=== PATIENT | female | born 1960 | race Caucasian/White ===

== ENCOUNTER → 2019-01-06 | Outpatient (CLI) | payer MEDICAID ==
[2019-01-06 11:41] LABS: Basophils # (A) 0.1 k/uL (0-0.2); Basophils % (A) 1 %; Eosinophils # (A) 0.2 k/uL (0-0.7); Eosinophils % (A) 3 %; HCT 44.6 % (34.0-46.0); HGB 14.3 gm/dL (11.4-16.0); Lymphocytes # (A) 2.2 k/uL (1.0-4.8); Lymphocytes % (A) 38 %; MCH 30.4 pg (25.0-35.0); Mean Platelet Volume 7.1; Monocytes # (A) 0.4 k/uL (0-1.0); Monocytes % (A) 6 %; Neutrophils % (A) 51 %; Platelet Count 274 k/uL (150-450); RBC 4.69 m/uL (3.80-5.40); RDW 12.8 % (11.5-15.5); WBC 5.8 k/uL (3.8-10.6)
[2019-01-06 17:08] LABS: T4, Free (Free Thyroxine) 1.2 ng/dL (0.80-1.80)
[2019-01-06 17:16] LABS: Albumin 4.5 g/dL (3.80-4.90); Albumin/Globulin Ratio 1.96 (1.60-3.17); Anion Gap 5.2 mmol/L (4.00-12.00); Calcium 9.6 mg/dL (8.7-10.3); Carbon Dioxide 27.8 mmol/L (21.6-31.8); Globulin 2.3 g/dL (1.6-3.3); LDL Cholesterol,Calculated 162.6 mg/dL (0.0-131.0); Potassium 4.8 mmol/L (3.5-5.5); Total Bilirubin 0.4 mg/dL (0.3-1.2); Total Protein 6.8 g/dL (6.2-8.2); VLDL Calculation 41.4 mg/dL (5.00-40.00)
== END | disposition home or self-care (01) ==
LOC: LABWHC1 11:07
PROVIDERS: ATTEND Nurse Practitioner Family
DX: E03.9 Hypothyroidism, unspecified (principal); E55.9 Vitamin D deficiency, unspecified; Z13.220 Encounter for screening for lipoid disorders
CPT/HCPCS: 36415; 80053; 80061; 82306; 84439; 84443; 85025

== ENCOUNTER → 2019-08-03 | Outpatient (CLI) | payer MEDICAID ==
[2019-08-03 08:59] LABS: Basophils # (A) 0.1 k/uL (0-0.2); Basophils % (A) 1 %; Eosinophils # (A) 0.1 k/uL (0-0.7); Eosinophils % (A) 2 %; HCT 41.3 % (34.0-46.0); HGB 13.4 gm/dL (11.4-16.0); Lymphocytes # (A) 2.1 k/uL (1.0-4.8); Lymphocytes % (A) 40 %; MCH 29.9 pg (25.0-35.0); MCHC 32.4 g/dL (31.0-37.0); MCV 92.3 fL (80.0-100.0); Mean Platelet Volume 7.7; Monocytes # (A) 0.3 k/uL (0-1.0); Monocytes % (A) 6 %; Neutrophils # (A) 2.6 k/uL (1.3-7.7); Neutrophils % (A) 50 %; Platelet Count 241 k/uL (150-450); RBC 4.47 m/uL (3.80-5.40); RDW 12.6 % (11.5-15.5); WBC 5.2 k/uL (3.8-10.6)
[2019-08-03 12:23] LABS: Erythrocyte Sedimentation Rate 12 mm/hr (0-20)
[2019-08-03 17:35] LABS: Iron Saturation 20.42 (12.00-45.00); Iron(FE) 78 ug/dL (50-170); Total Iron Binding Capacity 382 ug/dL (228-460)
[2019-08-03 17:56] LABS: ALT 25 U/L (8-44); AST 22 U/L (13-35); African American GFR (CKD) 94.9 (60.0-200.0); Alkaline Phosphatase 28 U/L (41-126); BUN/Creat Ratio 28.75 Ratio (12.00-20.00); C Reactive Protein <0.4 mg/dL (0.0-0.8); Calcium 9.6 mg/dL (8.7-10.3); Carbon Dioxide 27.9 mmol/L (21.6-31.8); Chloride 106 mmol/L (96-109); Chol/HDL Ratio 4.43; Cholesterol 208 mg/dL (0-200); Creatine Kinase 44 U/L (26-186); Glucose 100 mg/dL (70-110); LDL Cholesterol,Calculated 122.8 mg/dL (0.0-131.0); Magnesium 1.8 mg/dL (1.5-2.4); Non-African American GFR(CKD) 81.8 (60.0-200.0); Potassium 4.9 mmol/L (3.5-5.5); Sodium 140 mmol/L (135-145); Total Bilirubin 0.4 mg/dL (0.3-1.2); Total Protein 6.4 g/dL (6.2-8.2); Uric Acid 4.3 mg/dL (2.9-7.7)
[2019-08-04 12:25] LABS: Aldolase 3.6 U/L (1.2-7.6)
== END | disposition home or self-care (01) ==
LOC: LABWHC1 08:29
PROVIDERS: ATTEND Family Medicine
DX: D86.9 Sarcoidosis, unspecified (principal); E03.9 Hypothyroidism, unspecified; M79.10 Myalgia, unspecified site; N95.9 Unspecified menopausal and perimenopausal disorder
CPT/HCPCS: 36415; 80053; 80061; 82085; 82164; 82550; 82607; 83540; 83550; 83735; 84439; 84443; 84550; 85025; 85652; 86038; 86140

== ENCOUNTER → 2019-11-03 | Outpatient (CLI) | payer MEDICAID ==
[2019-11-03 11:54] LABS: Basophils % (A) 1 %; Eosinophils # (A) 0.1 k/uL (0-0.7); Eosinophils % (A) 1 %; HCT 42.8 % (34.0-46.0); HGB 13.6 gm/dL (11.4-16.0); Lymphocytes # (A) 2.1 k/uL (1.0-4.8); Lymphocytes % (A) 37 %; MCHC 31.7 g/dL (31.0-37.0); MCV 91.6 fL (80.0-100.0); Mean Platelet Volume 8.4; Monocytes # (A) 0.3 k/uL (0-1.0); Monocytes % (A) 5 %; Neutrophils # (A) 3.1 k/uL (1.3-7.7); Neutrophils % (A) 54 %; Platelet Count 234 k/uL (150-450); RBC 4.68 m/uL (3.80-5.40); RDW 12.3 % (11.5-15.5); WBC 5.7 k/uL (3.8-10.6)
[2019-11-03 18:17] LABS: T4, Free (Free Thyroxine) 0.9 ng/dL (0.80-1.80)
[2019-11-03 18:22] LABS: African American GFR (CKD) 117.3 (60.0-200.0); Albumin 4.6 g/dL (3.80-4.90); Albumin/Globulin Ratio 2.3 (1.60-3.17); Anion Gap 8.5 mmol/L (4.00-12.00); Carbon Dioxide 28.5 mmol/L (21.6-31.8); Non-African American GFR(CKD) 101.2 (60.0-200.0); Potassium 4.4 mmol/L (3.5-5.5); Total Bilirubin 0.4 mg/dL (0.2-1.2); Total Protein 6.6 g/dL (6.2-8.2)
== END | disposition home or self-care (01) ==
LOC: LABWHC1 11:03
PROVIDERS: ATTEND Family Medicine
DX: E56.9 Vitamin deficiency, unspecified (principal); R07.9 Chest pain, unspecified; R06.02 Shortness of breath; R20.2 Paresthesia of skin
CPT/HCPCS: 36415; 80053; 82175; 82570; 82785; 83655; 83825; 83880; 84207; 84439; 84443; 84484; 85025; 85379

== ENCOUNTER → 2019-11-28 | Outpatient (CLI) | payer MEDICAID ==
--- NOTE | 2019-11-28 11:15 | CT ---
EXAMINATION TYPE: CT chest w con DATE OF EXAM: 11/28/2019 COMPARISON: Shortness of breath, sarcoidosis, asthma HISTORY: Sarcoidosis CT DLP: 314.5 mGycm Automated exposure control for dose reduction was used. CONTRAST: CT scan of the chest is performed with IV Contrast, patient injected with 100 mL of Isovue 300. FINDINGS: LUNGS: The lungs are grossly clear, there is no concerning parenchymal mass or nodule identified. T here is no pleural effusion or pneumothorax seen. The tracheobronchial tree is patent. Density in th e left apex posteriorly noted measuring 7 mm extending to the pleura likely postinflammatory. MEDIASTINUM: There are no greater than 1 cm hilar or mediastinal lymph nodes. No pericardial effusi on is seen. OTHER: Hypertrophic and degenerative change of the vertebral column. Subsegmental changes in the ant erior segment left lower lobe most typical atelectasis IMPRESSION: 1. No acute intrathoracic process. No pathologic adenopathy. Areas of subsegmental consolidation felt to BE most likely postinflammatory or related to atelectasis.
--- NOTE | 2019-11-28 12:58 | ECHOF ---
Referral Reason:R06.02 SOB MEASUREMENTS -------- HEIGHT: 157.5 cm WEIGHT: 72.6 kg BP: RVIDd: 2.4 cm (< 3.3) IVSd: 0.9 cm (0.6 - 1.1) LVIDd: 3.6 cm (3.9 - 5.3) LVPWd: 1.2 cm (0.6 - 1.1) IVSs: 1.3 cm LVIDs: 3.0 cm LVPWs: 1.2 cm LA Diam: 3.0 cm (2.7 - 3.8) LAESV Index (A-L): 15.06 ml/m MV EXCURSION: 16.703 mm (> 18.000) MV EF SLOPE: 136 mm/s (70 - 150) EPSS: 0.2 cm MV E Damian: 0.75 m/s MV DecT: 181 ms MV A Damian: 0.69 m/s MV E/A Ratio: 1.09 RAP: 5.00 mmHg RVSP: 26.90 mmHg FINDINGS -------- Sinus rhythm. This was a technically good study. LV size, wall thickness and systolic function are normal, with an EF greater than 55%. The left hanny tricular size is normal. Overall left ventricular systolic function is normal with, an EF between 5 5 - 60 %. The diastolic filling pattern is normal for the age of the patient 9.37. The right ventricle is normal in size. The left atrial size is normal. Normal LA size by volume 22+/-6 ml/m2. The right atrial size is normal. The aortic valve is trileaflet, and appears structurally normal. No aortic stenosis or regurgitation. Mild mitral regurgitation is present. Mild tricuspid regurgitation present. Right ventricular systolic pressure is normal at < 35 mmHg. There is no evidence of pulmonary hypertension. There is no pulmonic regurgitation present. The aortic root size is normal. There is no pericardial effusion. CONCLUSIONS -------- 1. Sinus rhythm. 2. This was a technically good study. 3. LV size, wall thickness and systolic function are normal, with an EF greater than 55%. 4. The left ventricular size is normal. 5. Overall left ventricular systolic function is normal with, an EF between 55 - 60 %. 6. The diastolic filling pattern is normal for the age of the patient 9.37 7. The right ventricle is normal in size. 8. The left atrial size is normal. 9. Normal LA size by volume 22+/-6 ml/m2. 10. The right atrial size is normal. 11. The aortic valve is trileaflet, and appears structurally normal. No aortic stenosis or regurgitat ion. 12. Mild mitral regurgitation is present. 13. Mild tricuspid regurgitation present. 14. Right ventricular systolic pressure is normal at < 35 mmHg. 15. There is no evidence of pulmonary hypertension. 16. There is no pulmonic regurgitation present. 17. The aortic root size is normal. 18. There is no pericardial effusion. ACCOUNTING ADMINISTRATOR: Elissa Young RDCS
--- NOTE | 2019-11-28 13:30 | ECHOS ---
STRESS ECHOCARDIOGRAM DATE OF SERVICE: 11/28/2019 INDICATIONS: Chest pain. MEDICATIONS: Citalopram, prednisone. BASELINE HEART RATE: 82 BASELINE BLOOD PRESSURE: 133/56 MAXIMUM HEART RATE: 144 MAXIMUM BLOOD PRESSURE: 154/79 85% MPHR: 139 100% MPHR: 163 METS: 9.7 MAXIMUM STAGE REACHED: III TOTAL EXERCISE TIME: 8 minutes CLINICAL INFORMATION: Patient was exercised for a total period of 8 minutes. A peak heart rate of 144 was achieved. Maximum blood pressure of 154/79 mmHg was noted. Resting EKG shows normal sinus rhythm with normal NH interval and QRS duration and normal ST-T waves. No ST- segment depression suggestive of ischemia is noted. The baseline echocardiographic images reveals normal left ventricular chamber size with normal left ventricular systolic function. In the immediate postexercise period, normal increase in the wall thickness and contractility is noted. FINAL IMPRESSION: 1. This stress echocardiographic study is negative for stress-induced ischemia. 2. EKG portion of the stress test is not suggestive of ischemia. MMODL / IJN: [id number] /
== END | disposition home or self-care (01) ==
LOC: RADECHMAIN 08:37
PROVIDERS: ATTEND Family Medicine
DX: I08.1 Rheumatic disorders of both mitral and tricuspid valves (principal); D86.89 Sarcoidosis of other sites; R06.02 Shortness of breath
CPT/HCPCS: 93306; 93351; 71260; Q9967

== ENCOUNTER → 2020-01-25 | Outpatient (CLI) | payer MEDICAID | END | disposition home or self-care (01) | DX: I49.1 Atrial premature depolarization (principal) | CPT/HCPCS: 93225; 93226 ==

== ENCOUNTER → 2022-11-30 | Outpatient (CLI) | payer MEDICAID ==
--- NOTE | 2022-12-02 08:58 | MM ---
Reason for Exam: Screening (asymptomatic). Last mammogram was performed 5 year(s) and 2 month(s) ago. Patient History: Menarche at age 15. First Full-Term at age 27. Postmenopausal. Benign Excisional Biopsy on the right side. Risk Values: Nubia 5 year model risk: 1.9%. NCI Lifetime model risk: 9.5%. Prior Study Comparison: 06/14/2003 Bilateral Diagnostic Mammogram, [facility]. 08/17/2010 Bilateral Screening Mammogram, [facility]. 09/23/2017 Bilateral Screening Mammogram, [facility]. Tissue Density: The breast tissue is extremely dense which could obscure a lesion on mammography. Findings: Analyzed By CAD. There are a few scattered and loosely grouped tiny benign-appearing round calcifications in the left breast redemonstrated. Benign-appearing right axillary lymph nodes are again seen. There is no suspicious new group of microcalcifications or new suspicious mass in either breast. Overall Assessment: Benign, BI-RAD 2 Management: Screening Mammogram of both breasts in 1 year. Some advise bilateral breast ultrasound surveillance in patients with background extreme dense tissue. A clinical breast exam by your physician is recommended on an annual basis and results should be correlated with mammographic findings. Electronically signed and approved by: George Aguirre M.D.
== END | disposition home or self-care (01) ==
LOC: RADMAMWWP 15:48
PROVIDERS: ATTEND Obstetrics & Gynecology Obstetrics
DX: Z12.31 Encounter for screening mammogram for malignant neoplasm of breast (principal); Z78.0 Asymptomatic menopausal state; Z98.890 Other specified postprocedural states
CPT/HCPCS: 77063; 77067

== ENCOUNTER 2023-07-22 11:27 | Day surgery (SDC) | payer MEDICAID ==
[2023-07-19 15:47] VITALS: BMI 25.9
[2023-07-22] MEDS ORDERED: LIDOCAINE 1% (10MG/ML) FOR IV START INTRADERMA PRN (11:47)
[2023-07-22] MEDS ORDERED: ONDANSETRON 4 MG/2 ML VIAL IVP PRN (11:47)
[2023-07-22 11:52] VITALS: TEMP 98.4
[2023-07-22] MEDS: LACTATED RINGERS 1,000 ML IV SCH ×2 (12:03→13:33)
[2023-07-22 12:06] LABS: Glucose,Whole Blood 87 mg/dL (70-110)
[2023-07-22] MEDS ORDERED: PROPOFOL 10 MG/ML 20 ML VIAL IV ONE (13:39)
--- NOTE | 2023-07-22 13:53 | P.PCN ---
Date of Procedure: 07/22/23 Procedure(s) Performed: BRIEF HISTORY: Patient is a 63-year-old pleasant white female scheduled for an elective colonoscopy as a part of for screening colon cancer. PROCEDURE PERFORMED: Colonoscopy with biopsy. PREOPERATIVE DIAGNOSIS: Screening for colon cancer. IV sedation per Anesthesia. PROCEDURE: After informed consent was obtained, the patient, was brought into the endoscopy unit. IV sedation was administered by Anesthesia under continuous monitoring. Digital rectal examination was normal. Initially the Olympus CF-160 flexible video colonoscope was then inserted in the rectum, gradually advanced into the cecum without any difficulty. Careful examination was performed as the scope was gradually being withdrawn. Ileocecal valve and the appendiceal orifice were visualized and appeared normal. Prep was excellent. Mucosa of the cecum, the normal. In the ascending colon there was a 2 mm polyp that was removed by cold biopsy. Rest of the ascending colon, transverse colon, descending colon, sigmoid colon, and rectum appeared normal. Scattered sigmoid diverticulosis. Retroflexion was performed in the rectum and no lesions were seen. The patient tolerated the procedure well. IMPRESSION: 2 mm diminutive colon polyp status post cold biopsy Scattered sigmoid diverticulosis Rest of the colon appeared normal RECOMMENDATIONS: Findings of this examination were discussed with the patient as well as a family. She was advised to follow with the biopsy results and have a repeat colonoscopy in 10 years..
[2023-07-22 14:16] VITALS: BP 132/83; PULSE 71; RESP 18
== END 2023-07-22 14:32 | disposition home or self-care (01) ==
LOC: ORWHC2ENDO 11:27
PROVIDERS: ATTEND Internal Medicine Gastroenterology
DX: Z12.11 Encounter for screening for malignant neoplasm of colon (principal); K57.30 Diverticulosis of large intestine without perforation or abscess without bleeding; E78.5 Hyperlipidemia, unspecified; E07.9 Disorder of thyroid, unspecified; F41.9 Anxiety disorder, unspecified; Z79.890 Hormone replacement therapy; Z79.899 Other long term (current) drug therapy; Z98.890 Other specified postprocedural states
CPT/HCPCS: 88305; 45380; J2704

== ENCOUNTER → 2024-10-10 | Outpatient (CLI) | payer OTHER ==
[2024-10-10 14:33] VITALS: BP 139/73; PULSE 88; RESP 16; TEMP 98.5
--- NOTE | 2024-10-10 15:02 | P.SLEEP ---
History of Present Illness DATE: 10/10/2024 CONSULTATION/NEW PATIENT EVALUATION HISTORY OF PRESENT ILLNESS/SLEEP-WAKE EVALUATION: 64-year-old lady had been evaluated in the sleep center for possible obstructive sleep apnea hypopnea syndrome. SLEEP SCHEDULE: Usually sleep schedule from 10 PM to 8:30 AM on weekdays and from 10 PM to 9 AM on weekend. FALLING ASLEEP: Patient has difficulties with falling asleep. Presently she is using Lunesta before going to bed and with this medications able to fall asleep well. DURING SLEEP: Patient snores has episodes of gasping for air, dry mouth, sweating. Positive history of restless legs and kicking during the night. Patient wakes up from sleep 3 times with 2 episodes of nocturia. No history of hypnogogical hallucinations, sleep paralysis, or cataplexy. DURING THE DAY/WAKE STATE: In the morning patient wake up tired, has difficulties to pay attention, has problems with memory, concentration, irrita bility, depression and anxiety. [employer] sleepiness scale is 2, patient takes 1 nap at afternoon, if she could. PAST MEDICAL HISTORY: fibromyalgia, asthma.[]. PAST SURGICAL HISTORY: Status post uterus ablation. MEDICATIONS: Please see below. SOCIAL HISTORY: Please see below. FAMILY HISTORY: Please see below. REVIEW OF SYSTEMS: Snoring, multiple awakenings from sleep. No fevers. No double vision. No recent chest pain. No shortness of breath. No abdominal pain. No bleeding episodes. No blood in urine. No seizure episodes. PHYSICAL EXAMINATION: GENERAL: A pleasant patient without any distress. VITAL SIGNS: Please see below weight 140 pounds, BMI 27.3. HEENT: PERRLA, EOMI. Evaluation of oropharynx showed tongue protrudes midline, low position of soft palate Mallampati there is 3, retrognathia 2 mm. NECK: Supple. No JVD. Thyroid is not palpable. 13.5 inches in circumference. LUNGS: Clear to percussion and to auscultation. Good air exchange. No wheezing or rhonchi. HEART: S1, S2 regular. No murmurs, gallops or rubs. ABDOMEN: Soft and nontender. Bowel sounds are present. No organomegaly appreciated. EXTREMITIES: No clubbing or cyanosis. 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 Cranial nerves 2 to 7 intact. There is no fasciculation or atrophy noted. No focal deficits observed. ASSESSMENT: 1. Snoring, multiple awakenings from sleep with gasping for air, dry mouth, s mall oropharyngeal airspace, retrognathia, patient takes naps. Obstructive sleep apnea hypopnea syndrome. 2. History of restless leg symptoms. 3. History of kicking during the night, possibly periodic limb movements. 4. Psychophysiological insomnia. 5 history of fibromyalgia. 6 . Asthma. 7. Status post uterus ablation. PLAN: 1. Polysomnography for evaluation of patient's breathing during sleep and to check for possible periodic limb movements. 2. Following plan after reading sleep study. 3. Preferable position during sleep on the side. 4. No driving if patient feels any sleepiness. Patient is aware of civil and criminal liability for unsafe driving. 5. Sleep hygiene with regular sleep time for at least 7.5-8 hours. 6. Watching weight. Thank you very much for referring this patient for consultation. Sincerely, Edwin Trevino MD, PhD, FAASM. Diplomat of [place] [employer], Sleep Medicine Board by [place] [employer] [place] [employer] [facility] [place] cc: Kiana Temple MD Past Medical History Past Medical History: Asthma, Hyperlipidemia, Thyroid Disorder History of Any Multi-Drug Resistant Organisms: None Reported Past Surgical History: Breast Surgery, Tonsillectomy Additional Past Surgical History / Comment(s): colonoscopy 2013, breast bx, Past Anesthesia/Blood Transfusion Reactions: Postoperative Nausea & Vomiting (PONV) Additional Past Anesthesia/Blood Transfusion Reaction / Comment(s): no blood transfusion Past Psychological History: Anxiety Smoking Status: Former smoker Past Alcohol Use History: None Reported Additional Past Alcohol Use History / Comment(s): quit 37 years ago Past Drug Use History: None Reported - Past Family History Sister(s) Family Medical History: Asthma, Cancer, Osteoarthritis (OA) Additional Family Medical History / Comment(s): lung, fibromyalgia, snoring Mother Family Medical History: Coronary Artery Disease (CAD), Hyperlipidemia, Thyroid Disorder Additional Family Medical History / Comment(s): snoring, insomnia, restless legs Medications and Allergies Home Medications Medication Instructions Recorded Confirmed Type Atorvastatin [Lipitor] 5 mg PO DAILY 05/26/23 10/10/24 History DULoxetine HCL [Cymbalta] 20 mg PO DAILY 05/26/23 10/10/24 History Levothyroxine Sodium [Tirosint] 25 mcg PO DAILY 05/26/23 10/10/24 History Eszopiclone 2 mg PO HS 07/19/23 10/10/24 History Allergies Allergy/AdvReac Type Severity Reaction Status Date / Time No Known Allergies Allergy Verified 07/22/23 11:48 Physical Exam Vitals: Vital Signs Temp Pulse Resp BP Pulse Ox 10/10/24 14:31 98.5 F 88 16 139/73 95 Intake and Output 10/09/24 10/10/24 10/10/24 22:59 06:59 14:59 Other: Weight 63.503 kg Sleep Note - Sleep Data ESS Total: 2 - Sleep Note Sleep Note: Temperature: 98.5 F Pulse Rate: 88 Respiratory Rate: 16 Blood Pressure: 139/73 SpO2: 95 Height: 5 ft Weight: 63.503 kg BMI: Neck Circumference: 13.5
== END ==
LOC: 3 N SLEEP 14:05
PROVIDERS: ATTEND Internal Medicine
DX: G47.33 Obstructive sleep apnea (adult) (pediatric) (principal); M26.19 Other specified anomalies of jaw-cranial base relationship; F51.04 Psychophysiologic insomnia; J45.909 Unspecified asthma, uncomplicated; Z98.890 Other specified postprocedural states; Z87.39 Personal history of other diseases of the musculoskeletal system and connective tissue
CPT/HCPCS: 99211